=== PATIENT | male | born 1990 | race Caucasian/White ===

== ENCOUNTER 2017-02-14 15:37 | Emergency (ER) | payer SELFPAY ==
[2017-02-14] MEDS ORDERED: NALOXONE HCL 2 MG/2 ML SYR ONE (15:59)
--- NOTE | 2017-02-14 16:37 | CT REPORT ---
HISTORY: Headache. COMPARISON: None. TECHNIQUE: Axial non-contrast images obtained from skull vertex through foramen magnum. Dose reduction technique was utilized. FINDINGS: There is no atrophy. There is no hemorrhage. There is no hydrocephalus. No mass lesion is identifi ed. Goldberg white differentiation adequate, there is no infarction. No midline shift is identified. T he paranasal sinuses are clear. IMPRESSION: No acute intracranial abnormality. Final Electronic Signature: This report was electronically signed by René Hodge MD on 02/14/2017 4:35 PM. maris /
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
== END 2017-02-14 17:00 | disposition home or self-care (01) ==
LOC: EDBD 15:37 → ER 15:37 → EEVIPCON 15:37 → ER 17:00
DX: F10.129 Alcohol abuse with intoxication, unspecified (principal); R41.82 Altered mental status, unspecified; S06.890A Other specified intracranial injury without loss of consciousness, initial encounter; S80.211A Abrasion, right knee, initial encounter; V47.0XXA Car driver injured in collision with fixed or stationary object in nontraffic accident, initial encounter; Z99.89 Dependence on other enabling machines and devices; Z74.3 Need for continuous supervision
CPT/HCPCS: 70450; 80302; 80305; 80320; 80359; 99285; A0425; A0427; J2310